=== PATIENT | male | born 1995 ===

== ENCOUNTER 2021-06-23 23:21 | Emergency (ER) | payer BC ==
[2021-06-23] MEDS ORDERED: Amoxicillin/Clavulanate K 875-125 MG Tab PO ONE (23:46)
--- NOTE | 2021-06-23 23:48 | EDM.PDOC ---
ED HPI GENERAL MEDICAL PROBLEM - General Chief Complaint: Laceration Stated Complaint: LACERATION ON ARM Time Seen by Provider: 06/23/21 23:43 - History of Present Illness INITIAL COMMENTS - FREE TEXT/NARRATIVE: CHIEF COMPLAINT(S): Right arm laceration HISTORY OF PRESENT ILLNESS: This is a 26-year-old man without any significant past medical history who comes to the emergency department with a chief complaint of right arm laceration. He states that his dogs were getting into a fight and he was trying to break it up in the dark when he felt a scratch to his arm. He states that there is a cut to his right forearm. He states that there what appeared to be pus scratches next to it and this is unlikely a bite. He states that his tetanus is up-to-date. He states that he does not have any weakness in his arm or his hand. He denies any excessive bleeding. He currently denies any pain. REVIEW OF SYSTEMS: Skin: Positive for laceration to right forearm MSK: Denies joint pain Neurological: Denies, numbness, tingling PAST MEDICAL HISTORY: As per history of present illness and as reviewed below otherwise noncontributory. SURGICAL HISTORY: As per history of present illness and as reviewed below otherwise noncontributory. SOCIAL HISTORY: As per history of present illness and as reviewed below otherwise noncontributory. FAMILY HISTORY: As per history of present illness and as reviewed below otherwise noncontributory. EXAMINATION OF ORGAN SYSTEMS/BODY AREAS: Constitutional: Blood pressure 143/88, heart rate 83, respirate 17 with an oxygen saturation 97% on room air. Temperature 36.2 General: Well-appearing man who is in no acute distress Psychiatric: Appropriate mood and affect. Eyes: No scleral icterus or conjunctival erythema Cardiovascular: Regular, rate, and rhythm. No gallops, murmurs, or rubs. Bilateral upper extremity pulses symmetric and intact. Respiratory: Lungs clear to auscultation bilaterally. No wheezes, rales, or rhonchi. Musculoskeletal: Normal range of motion of the elbow and the patient is able to have full dexterity of all his fingers on his right hand. Skin: There is a linear laceration on the anterior medial aspect of the right forearm just distal to the elbow without any active bleeding measuring 2.5cm There does not appear to be any puncture wounds. Neurological: Alert, GCS 15 strength and sensation intact in upper and lower extremities bilaterally MEDICAL DECISION MAKING AND COURSE IN THE ED WITH INTERPRETATION/REVIEW OF DIAGNOSTIC STUDIES: This is a 26-year-old man without any significant past medical history who comes to the emergency department with what appears to be a laceration to his medial right forearm that does not appear to be a puncture wound secondary to the bite however it is uncertain. Therefore we will provide the patient with Augmentin by mouth. We will perform primary suture repair. Patient was amenable to this plan. Laceration Repair Note Repair of the 2.5 cm right forearm wound was done by myself. Wound was i rrigated well with saline. Local anesthesia with lidocaine was performed. No foreign bodies were noted. The wound was repaired with 3 4-0 nylon sutures. Wound edges approximated well. Bacitracin ointment and a sterile dressing were applied. After repair I did discuss strict return precautions with the patient. He was amenable to discharge and had no further questions DISPOSITION: The patient was discharged home in stable condition. The patient will follow up with primary care physician or emergency department for stitch removal CONDITION: Good PROCEDURES: Laceration repair FINAL IMPRESSION(S)/DIAGNOSES: 1. Acute right forearm laceration status post suture repair Enrique Sena M.D. Right Arm Pain Score (Numeric/FACES): 3 - Related Data Allergies Allergy/AdvReac Type Severity Reaction Status Date / Time No Known Allergies Allergy Verified 06/23/21 23:36 Home Meds: Home Meds Amoxicillin/Clavulanate K [Augmentin 875-125 MG] 1 tab PO BID #13 tablet 06/23/21 [Rx] Past Medical History - Past Health History Medical/Surgical History: Denies Medical/Surgical History - Infectious Disease History Infectious Disease History: Reports: None - Past Surgical History GI Surgical History: Reports: Appendectomy Social & Family History - Tobacco Use Tobacco Use Status *Q: Never Tobacco User - Recreational Drug Use Recreational Drug Use: No ED ROS GENERAL - Review of Systems Review Of Systems: See Below ED EXAM, SKIN/RASH Exam: See Below Course - Vital Signs Last Recorded V/S: Last Vital Signs Temp 36.1 C 06/24/21 00:10 Pulse 72 06/24/21 00:10 Resp 18 06/24/21 00:10 BP 142/89 H 06/24/21 00:10 Pulse Ox 98 06/24/21 00:10 - Orders/Labs/Meds Meds: Medications Discontinued Medications Generic Name Dose Route Start Last Admin Trade Name Shahzad PRN Reason Stop Dose Admin Amoxicillin/Clavulanate Potassium 1 tab 06/23/21 23:46 06/24/21 00:02 Amoxicillin/Clavulanate K 875-125 Mg Tab PO 06/23/21 23:47 1 tab ONETIME ONE Administration Lidocaine HCl 5 ml 06/23/21 23:44 06/24/21 00:02 Lidocaine 1% 5 Ml Sdv INJECT 06/23/21 23:45 5 ml ONETIME ONE Administration Departure - Departure Time of Disposition: 00:02 Disposition: Home, Self-Care 01 Condition: Fair Clinical Impression: Laceration - Discharge Information *PRESCRIPTION DRUG MONITORING PROGRAM REVIEWED*: No *COPY OF PRESCRIPTION DRUG MONITORING REPORT IN PATIENT SAVANNA: No Prescriptions: Amoxicillin/Clavulanate K [Augmentin 875-125 MG] 1 tab PO BID #13 tablet Instructions: Laceration Care, Adult, [id number], Sutures, Erick, or Adhesive Wound Closure, [id number] Forms: ED Department Discharge Additional Instructions: You were evaluated today on an emergent basis. At this time it is uncertain as if this is a clot or if this is an actual bite wound therefore we did start you on Augmentin. Please take this twice a day until the antibiotics are gone. In addition we did repair the laceration with 3 stitches. These need to be removed in 7 days. As discussed if you have any pus drainage or redness I would like you to return to the emergency department. In addition please use Tylenol and Motrin as described below for pain relief. There are no current weight restrictions but if you feel tension on the area and are concerned please limit excessive heavy lifting. Please use: Tylenol 500-1000mg every 6 hours (DO NOT TAKE MORE THAN 4000mg in 1 day) Ibuprofen 400mg every 6 hours (Take with food as it can cause ulcers, GI upset) Example schedule: 8:00 AM (Tylenol 500-1000mg) 11:00 AM (Ibuprofen 400mg) 2:00 PM (Tylenol 500-1000mg) 5:00 PM (Ibuprofen 400mg) [facility] [address] [place] [id number] [facility] [address] [place] [address] The patient is informed of any results of their evaluation and diagnostic workup and all questions are answered. They are given discharge instructions and return precautions. The patient is stable for discharge. The patient states they understand and agree with the plan and that they will return if their symptoms get worse or if they have any new concerns. The following information is given to patients seen in the emergency department who are being discharged to home. This information is to outline your options for follow-up care. We provide all patients seen in our emergency department with a follow-up referral. The need for follow-up, as well as the timing and circumstances, are variable depending upon the specifics of your emergency department visit. If you don't have a primary care physician on staff, we will provide you with a referral. We always advise you to contact your personal physician following an emergency department visit to inform them of the circumstance of the visit and for follow-up with them and/or the need for any referrals to a consulting specialist. The emergency department will also refer you to a specialist when appropriate. This referral assures that you have the opportunity for follow-up care with a specialist. All of these measure are taken in an effort to provide you with optimal care, which includes your follow-up. Under all circumstances we always encourage you to contact your private physician who remains a resource for coordinating your care. When calling for follow-up care, please make the office aware that this follow-up is from your recent emergency room visit. If for any reason you are refused follow-up, please contact the [facility] Emergency Department at and asked to speak to the emergency department charge nurse. Sepsis Event Note (ED) - Evaluation Sepsis Screening Result: No Definite Risk
== END 2021-06-24 00:11 | disposition home or self-care (01) ==
LOC: MW.ED 23:21
DX: S51.811A Laceration without foreign body of right forearm, initial encounter (principal); W54.8XXA Other contact with dog, initial encounter
CPT/HCPCS: 12001; 99282; A9270